=== PATIENT | female | born 1980 | race Caucasian/White ===

== ENCOUNTER 2019-08-05 10:36 | Emergency (ER) | payer OTHER ==
[~2019-08-05] VITALS: Ht 175.3 cm; Wt 54.1 kg
[2019-08-05 10:49] VITALS: BP 146/90
--- NOTE | 2019-08-05 11:25 | NUR ---
PA TO BEDSIDE AT THIS TIME
[2019-08-05] MEDS ORDERED: ONDANSETRON ODT 8 MG PO ONE (11:30)
[2019-08-05] MEDS ORDERED: OXYcodone/APAP 5/325MG TABLET PO ONE (11:30)
[2019-08-05] MEDS ORDERED: ONDANSETRON ODT 8 MG ONE (11:33)
[2019-08-05] MEDS ORDERED: OXYcodone/APAP 5/325MG TABLET ONE (11:34)
--- NOTE | 2019-08-05 11:39 | NUR ---
PT DECLINING PAIN MEDICATION AT THIS TIME, STS JUST WANTS THE ABX SHE WAS SENT FROM [facility] FOR. PA TO BE UPDATED
== END 2019-08-05 12:48 | disposition home or self-care (01) ==
LOC: ED 12:30
DX: K04.7 Periapical abscess without sinus (principal); Z90.89 Acquired absence of other organs; F17.200 Nicotine dependence, unspecified, uncomplicated; Z88.5 Allergy status to narcotic agent
CPT/HCPCS: 99283